=== PATIENT | male | born 1950 | race Caucasian/White ===

== ENCOUNTER 2016-10-07 05:43 | Day surgery (SDC) | payer MEDICARE ==
[~2016-10-07] VITALS: Ht 182.9 cm; Wt 130.0 kg
[~2016-10-07 05:43] MED LIST: ESCI20TA PO; LOSA100T6 PO
[2016-10-07] MEDS ORDERED: BUPIVACAINE/PF-EPI 0.5% 1:200K ONE (06:13)
[2016-10-07] MEDS ORDERED: LIDOCAINE/PF 1%, 30ML ONE (06:13)
[2016-10-07] MEDS ORDERED: EPINEPHRINE 1 MG/ML, 1ML ONE (06:13)
[2016-10-07] MEDS ORDERED: LACTATED RINGERS 1,000 ML IV SCH (06:23)
[2016-10-07 06:24] VITALS: BP 148/102
[2016-10-07] MEDS ORDERED: LIDOCAINE 1%, 2ML SQ PRN (06:30)
[2016-10-07] MEDS ORDERED: MIDAZOLAM 1 MG/ML, 2ML ONE (07:08)
[2016-10-07] MEDS ORDERED: FENTANYL PF 250 MCG/5ML ONE (07:08)
[2016-10-07] MEDS ORDERED: EPHEDRINE 50 MG/ML, 1ML IVPush PRN (07:30)
[2016-10-07] MEDS ORDERED: morphine SULFATE 10 MG/ML, 1ML IV PRN (07:30)
[2016-10-07] MEDS ORDERED: OXYcodone 5 MG/5 ML ORAL.SOL UDC PO PRN (07:30)
[2016-10-07] MEDS ORDERED: hydrALAzine 20 MG/ML, 1ML IV PRN (07:30)
[2016-10-07] MEDS ORDERED: FENTANYL PF 100 MCG/2ML IV PRN (07:30)
[2016-10-07] MEDS ORDERED: PROMETHAZINE 25 MG/ML, 1ML IV PRN (07:30)
[2016-10-07] MEDS ORDERED: ACETAMINOPHEN 325 MG TABLET PO PRN (07:30)
[2016-10-07] MEDS ORDERED: ONDANSETRON 2MG/ML, 2ML IVPush PRN (07:30)
[2016-10-07] MEDS ORDERED: MEPERIDINE/PF 25MG/0.5ML IVPush PRN (07:30)
[2016-10-07] MEDS ORDERED: MIDAZOLAM 1 MG/ML, 2ML IV PRN (07:30)
[2016-10-07] MEDS ORDERED: HYDROcodone/APAP 7.5-325MG/15ML UDC PO PRN (07:30)
[2016-10-07] MEDS ORDERED: LABETALOL 5MG/ML, 20ML IV PRN (07:30)
[2016-10-07] MEDS ORDERED: PROPOFOL 10 MG/ML, 50ML ONE (07:42)
[2016-10-07] MEDS ORDERED: DEXAMETHASONE 4 MG/ML, 1ML ONE (07:42)
[2016-10-07] MEDS ORDERED: CEFAZOLIN 1,000 MG ONE (07:42)
[2016-10-07] MEDS ORDERED: SUCCINYLCHOLINE 20 MG/ML, 10ML ONE (07:42)
[2016-10-07] MEDS ORDERED: ONDANSETRON 2MG/ML, 2ML ONE (07:42)
[2016-10-07] MEDS ORDERED: OMNIPAQUE 180 MG/ML, 20ML VIAL IT ONE ×2 (08:15)
[2016-10-07] MEDS ORDERED: MORPHINE SULFATE 4 MG/ML, 1ML ONE (09:09)
[2016-10-07] MEDS ORDERED: HYDROcodone/APAP 7.5-325MG/15ML UDC ONE (09:10)
[2016-10-07] MEDS ORDERED: OMNIPAQUE 180 MG/ML, 20ML VIAL ONE (09:19)
[2016-10-07] MEDS ORDERED: DIPHENHYDRAMINE 50 MG/ML, 1ML ONE (09:34)
[2016-10-07] MEDS ORDERED: DIPHENHYDRAMINE 50 MG/ML, 1ML IVPush PRN (10:00)
== END 2016-10-07 11:35 ==
LOC: EDBD → OUT 05:43
PROVIDERS: ATTEND Orthopaedic Surgery Orthopaedic Surgery of the Spine
DX: S32.028A Other fracture of second lumbar vertebra, initial encounter for closed fracture (principal); M54.5 Low back pain; X58.XXXA Exposure to other specified factors, initial encounter; Y93.9 Activity, unspecified; Y92.9 Unspecified place or not applicable; E66.01 Morbid (severe) obesity due to excess calories; Z68.37 Body mass index [BMI] 37.0-37.9, adult; I10 Essential (primary) hypertension; E11.9 Type 2 diabetes mellitus without complications; F32.9 Major depressive disorder, single episode, unspecified; Z88.8 Allergy status to other drugs, medicaments and biological substances
CPT/HCPCS: 22514; 72100; 82962; 88307; 88311; C1713; J0171; J0330; J0690; J1100; J1200; J2250; J2270; J2405; J2704; J3010; J3490; J7120; Q9965

== ENCOUNTER 2017-05-07 13:52 | Emergency (ER) | payer MEDICARE ==
[~2017-05-07] VITALS: Ht 185.4 cm; Wt 129.3 kg
[2017-05-07 14:36] LABS: BASOPHILS # (AUTO) 0.01 x10^3/uL (0-0.1); BASOPHILS % (AUTO) 0 % (0-1); EOSINOPHILS # (AUTO) 0.01 x10^3/uL (0-0.4); EOSINOPHILS % (AUTO) 0 % (1-7); LYMPHOCYTES % (AUTO) 9 % (22-44); MD NO; MEAN CORPUSCULAR HEMOGLOBIN 32.7 pg (27.5-34.5); MEAN CORPUSCULAR VOLUME 96.1 fL (81-97); MEAN PLATELET VOLUME 7.7 fL (7.4-10.4); MONOCYTES % (AUTO) 5 % (2-9); NEUTROPHILS # (AUTO) 9.27 x10^3/uL (1.8-6.8); NEUTROPHILS % (AUTO) 86 % (42-75); PLATELET COUNT 235 x10^3/uL (130-400); RED BLOOD COUNT 5.15 x10^6/uL (4.38-5.82); RED CELL DISTRIBUTION WIDTH 13.8 % (9.4-14.8)
[2017-05-07 14:47] LABS: ALBUMIN 3.4 g/dL (3.4-5.0); ANION GAP 11 mmol/L (5-15); CALCIUM 8.1 mg/dL (8.5-10.1); CHLORIDE 105 mmol/L (98-107); CREATININE 1.04 mg/dL (0.7-1.3)
[2017-05-07 15:18] LABS: RAPID INFLUENZA A Negative (Negative); RAPID INFLUENZA B POSITIVE (Negative)
[2017-05-07 18:03] VITALS: BP 160/90
== END 2017-05-07 18:09 | disposition home or self-care (01) ==
LOC: ED 18:01
DX: J11.1 Influenza due to unidentified influenza virus with other respiratory manifestations (principal); J01.00 Acute maxillary sinusitis, unspecified; J31.0 Chronic rhinitis; I10 Essential (primary) hypertension; E11.9 Type 2 diabetes mellitus without complications; Z86.718 Personal history of other venous thrombosis and embolism
CPT/HCPCS: 36415; 71046; 80048; 82040; 85025; 87400; 99285